=== PATIENT | female | born 1960 | race Caucasian/White ===

== ENCOUNTER 2017-04-04 18:04 | Emergency (ER) | payer OTHER ==
[2017-04-04 18:29] VITALS: BP 116/73; PULSE 59; TEMP 98.3; BMI 29.3
--- NOTE | 2017-04-04 19:22 | PDOC ---
History of Present Illness - General History Source: Patient Exam Limitations: No Limitations - History of Present Illness Initial Comments: 04/04/17 19:54 56 y/o F with a PMHx of a total hysterectomy, migraines, HLD presents to the ED with lower pelvic pressure for 4 days and vaginal discharge for 3 days. Patient reports associated vaginal itchiness and dysuria. She also reports a headache and breast tenderness. She reports the discharge is white in color without an odor. Patient had a pap smear last week and was given premarin cream that she only used once. She reports the headache is similar to her migraines in the past , but states this headache has lasted longer than usual. Her last sexual intercourse was 2 weeks ago. Patient reports chronic urinary urgency and frequency, which she attributes to multiple surgeries in the past. She denies hematuria. She denies fever, chills, nausea, vomiting, diarrhea. Denies chest pain, SOB. <Barbie Dash - Last Filed: 04/04/17 19:54> <Susana Stafford - Last Filed: 04/05/17 04:04> - General Chief Complaint: Vaginal Sxs Stated Complaint: vaginal d/c Time Seen by Provider: 04/04/17 19:11 Past History <Barbie Dash - Last Filed: 04/04/17 19:54> - Past Medical History GI Disorders: Yes (GERD) Hypercholesterolemia: Yes Other medical history: migrains - Family Disease History Family Disease History: Diabetes: Grandparents, Father, Mother, Heart Disease: Father - Suicide/Smoking/Psychosocial Hx Smoking Status: Yes Smoking History: Never smoked Have you smoked in the past 12 months: Yes Number of Cigarettes Smoked Daily: 2 If you are a former smoker, when did you quit?: 5 years Information on smoking cessation initiated: No 'Breaking Loose' booklet given: 01/15/16 Hx Alcohol Use: No Drug/Substance Use Hx: No Substance Use Type: Alcohol <Susana Stafford - Last Filed: 04/05/17 04:04> - Past Medical History Allergies/Adverse Reactions: Allergies Allergy/AdvReac Type Severity Reaction Status Date / Time Sulfa (Sulfonamide Allergy Hives Verified 04/04/17 18:04 Antibiotics) [Sulfa(Sulfonamide Antibiotics)] Home Medications: Ambulatory Orders Icosapent Ethyl [Vascepa] 01/15/16 Fluconazole [Diflucan] 150 mg PO ONCE #2 tablet 04/04/17 Omeprazole 40 mg PO DAILY 04/04/17 Propranolol HCl [Inderal] 20 mg PO DAILY 04/04/17 Review of Systems - Review of Systems Able to Perform ROS?: Yes Comments:: 04/04/17 19:54 CONSTITUTIONAL: Absent: fever, chills, diaphoresis, generalized weakness, malaise, loss of appetite HEENT: Absent: rhinorrhea, nasal congestion, throat pain, throat swelling, difficulty swallowing, mouth swelling, ear pain, eye pain, visual changes CARDIOVASCULAR: Absent: chest pain, syncope, palpitations, irregular heart rate , lightheadedness, peripheral edema RESPIRATORY: Absent: cough, shortness of breath, dyspnea with exertion, orthopnea, wheezing, stridor, hemoptysis GASTROINTESTINAL: Absent: abdominal pain, abdominal distension, nausea, vomiting , diarrhea, constipation, melena, hematochezia GENITOURINARY: (+) vaginal discharge, pelvic pain, vaginal itchiness, dysuria. Absent: hesitancy, hematuria, flank pain MUSCULOSKELETAL: Absent: myalgia, arthralgia, joint swelling SKIN: Absent: rash, itching, pallor HEMATOLOGIC/IMMUNOLOGIC: Absent: easy bleeding, easy bruising, lymphadenopathy, frequent infections ENDOCRINE: Absent: unexplained weight gain, unexplained weight loss, heat intolerance, cold intolerance NEUROLOGIC: (+) headache. Absent: focal weakness or paresthesias, dizziness, unsteady gait, seizure, mental status changes, bladder or bowel incontinence PSYCHIATRIC: Absent: anxiety, depression, suicidal or homicidal ideation, hallucinations. <Barbie Dash - Last Filed: 04/04/17 19:54> *Physical Exam - Vital Signs Last Vital Signs Temp Pulse Resp BP Pulse Ox 98.3 F 59 L 17 116/73 97 04/04/17 18:04 04/04/17 18:04 04/04/17 18:04 04/04/17 18:04 04/04/17 18:04 - Physical Exam Comments: 04/04/17 19:54 GENERAL: The patient is awake, alert, and fully oriented, in no acute distress. HEAD: Normal with no signs of trauma. EYES: Pupils equal, round and reactive to light, extraocular movements intact, sclera anicteric, conjunctiva clear with no pallor. ENT: Ears normal, nares patent, oropharynx clear without exudates. Moist mucous membranes. NECK: Normal range of motion, supple without lymphadenopathy, JVD, or masses. LUNGS: Breath sounds equal, clear to auscultation bilaterally. No wheeze/ crackles. HEART: Regular rate and rhythm, normal S1 and S2 without murmur or rub. ABDOMEN: Multiple lower abdominal incision that are well healed. Mild tenderness of LLQ without masses or rebound or guarding. Soft/nondistended. BS wnl. EXTREMITIES: Normal range of motion, no edema. No clubbing or cyanosis. No cords, erythema, or tenderness. NEUROLOGICAL: Cranial nerves II through XII grossly intact. Normal speech, normal gait. PSYCH: Normal mood, normal affect. SKIN: Warm, Dry, normal turgor, no rashes or lesions noted. PELVIC: erythematous external genitalia with moderate white vaginal discharge, no CMT. <Barbie Dash - Last Filed: 04/04/17 19:54> - Vital Signs Last Vital Signs Temp Pulse Resp BP Pulse Ox 98.3 F 59 L 17 116/73 97 04/04/17 18:04 04/04/17 18:04 04/04/17 18:04 04/04/17 18:04 04/04/17 18:04 <Susana Stafford - Last Filed: 04/05/17 04:04> ED Treatment Course - ADDITIONAL ORDERS Additional order review: Laboratory Results 04/04/17 19:25 Urine Color Yellow Urine Appearance Clear Urine pH 6.0 Ur Specific Trade 1.015 Urine Protein Negative Urine Glucose (UA) Negative Urine Ketones Negative Urine Blood Trace-intact H Urine Nitrite Negative Urine Bilirubin Negative Urine Urobilinogen 0.2 Ur Leukocyte Esterase Trace H <Barbie Dash - Last Filed: 04/04/17 19:54> Progress Note - Progress Note Progress Note: Documentation has been prepared under my direction and personally reviewed by me in its entirety. I attest that this documented accurately reflects all work, treatment, procedures and medical decision making performed by me. <Susana Stafford - Last Filed: 04/05/17 04:04> Medical Decision Making - Medical Decision Making As noted above, this 56-year-old woman presents with a few day history of vulvar pruritus, whitish discharge and dysuria. She also has some mild pelvic discomfort. She has a history of hysterectomy and BSO for ovarian cysts at age 43. No history of malignancy noted. Exam unremarkable. Pelvic exam by medical student revealed erythematous external genitalia, whitish vaginal discharge and no CMT. Chlamydia/GC cervical swab sent although patient is at low risk for STD with last sexual intercourse with her (no other partners) approximately 2 weeks ago. Urinalysis shows some RBCs/WBCs and few bacteria. Urine sent for culture and sensitivity. This is patient does not have overwhelming symptoms consistent with UTI, treatment of possible UTI will be pending results of C&S. We will treat for presumed vaginal candidiasis. Patient asked for "pill" for yeast infection since she does not like cream/suppositories Prescription for Diflucan 150 mg (with additional dose if symptoms are recurrent ) sent to patient's pharmacy <Susana Stafford - Last Filed: 04/05/17 04:04> *DC/Admit/Observation/Transfer - Attestations Scribe Attestion: 04/04/17 19:57 Documentation prepared by Barbie Dash, acting as biomedical service engineer for Susana Stafford MD. <Barbie Dash - Last Filed: 04/04/17 19:54> <Susana Stafford - Last Filed: 04/05/17 04:04> Diagnosis at time of Disposition: Vaginal candidiasis - Discharge Dispostion Disposition: HOME Condition at time of disposition: Stable - Prescriptions Prescriptions: Fluconazole [Diflucan] 150 mg PO ONCE #2 tablet - Referrals Referrals: Hue Prado MD [Primary Care Provider] - Michele Duggan MD [Staff Physician] - 3 days - Patient Instructions Printed Discharge Instructions: DI for Vaginal Yeast Infection Additional Instructions: Diflucan 150 mg 1 tablet by mouth; can repeat dose in 48 hours if symptoms persist drink plenty of water Follow-up with within 3 days We will call you if result of urine culture requires treatment Return to ER if you have worsening symptoms or experience fever/vomiting
[2017-04-04 19:31] LABS: URINE APPEARANCE Clear; URINE BILIRUBIN Negative (NEGATIVE); URINE BLOOD Trace-intact (NEGATIVE); URINE COLOR YELLOW; URINE GLUCOSE (UA) Negative (NEGATIVE); URINE KETONE Negative (NEGATIVE); URINE LEUK ESTERASE TRACE (NEGATIVE); URINE NITRITE Negative (NEGATIVE); URINE PROTEIN Negative (NEGATIVE); URINE UROBILINOGEN 0.2 (0.2-1.0)
[2017-04-04 20:08] LABS: URINE BACTERIA FEW /hpf (NEGATIVE)
== END 2017-04-04 20:31 | disposition home or self-care (01) ==
LOC: FER 18:04
DX: B37.3 Candidiasis of vulva and vagina (principal); Z87.891 Personal history of nicotine dependence; K21.9 Gastro-esophageal reflux disease without esophagitis; E78.00 Pure hypercholesterolemia, unspecified
CPT/HCPCS: 36415; 81003; 81015; 87086; 87491; 87591; 99282-25

== ENCOUNTER 2017-05-08 14:09 | Emergency (ER) | payer OTHER ==
[2017-05-08 14:17] VITALS: BP 123/71; PULSE 65; TEMP 97.9; BMI 30.2
[2017-05-08] MEDS ORDERED: TETRACAINE 0.5% HCL 0.6ML DROPPER.BOTTLE OS ONE (16:46)
[2017-05-08] MEDS ORDERED: TETRACAINE 0.5% OPHTH SOLN 2 ML BOTTLE ONE (16:51)
[2017-05-08] MEDS ORDERED: ACETAMINOPHEN 500 MG TABLET (FP) PO ONE (17:01)
[2017-05-08] MEDS ORDERED: ACETAMINOPHEN 500 MG TABLET (FP) ONE (17:06)
--- NOTE | 2017-05-08 17:06 | PDOC ---
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 Patient reports that shortly after this resolved she had headache (pressure like sensation) occipital area. He denies that this is anything like her normal migraines. Patient has never had any visual changes when getting a migraine in the past. Meds: No anticoagulants, OCPs. Allergies: SULFA REVIEW OF SYSTEMS GENERAL/CONSTITUTIONAL: No fever or chills. No weakness. No weight change. HEAD, EYES, EARS, NOSE AND THROAT: Decreased vision left eye by shadow then white light that lasted 30-45 minutes with no photophobia, phonophobia. No ear pain or discharge. No sore throat. CARDIOVASCULAR: No chest pain or shortness of breath. RESPIRATORY: No cough, wheezing, or hemoptysis. GASTROINTESTINAL: No nausea, vomiting. No diarrhea or constipation. No rectal bleeding. GENITOURINARY: No dysuria, frequency, or change in urination. MUSCULOSKELETAL: No joint or muscle swelling or pain. No neck or back pain. NEUROLOGIC: occipital headache (pressure like sensation, liighhtheadedness, no vertigo, loss of consciousness, altered mental status, or loss of sensation. PHYSICAL EXAM General Appearance: Appropriately dressed. No apparent distress, no intoxication HEENT: EOMI, FELICITY. No nystagmus. Normal voice. TMs normal, pharynx normal. No pallor of conjunctivae, no scleral icterus, no gross abnormatliy noted with slit lamp, + red reflex Neck: Supple, trachea midline. No tenderness, rigidity, carotid bruit, stridor , lymphadenopathy, thyromegaly. Respiratory/Chest: Lungs CTAB. Breath sounds normal. No chest tenderness, despiratory ristress, accessory muscle Use, labored respiration, crackles, rales, rhonchi, stridor, wheezing, dullness Cardiovascular: Regular Rhythm, Regular Rate, S1, S2. No JVD, Murmur, Bradycardia, Tachycardia Lymphatic: negative: Adenopathy, Tenderness Extremity: FROM of all extremities, Normal Capillary Refill, Normal Inspection, Normal Range of Motion, Pelvis Stable. No tenderness, Pedal Edema, Swelling, Erythema or deformity Integumentary: Normal Color, Dry, Warm, . 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 No appreciable EOM Palsy, Facial Droop or Sensory Deficit Timing/Duration: resolved prior to arrival (left eye shadow, white light ) Severity: mild Associated Symptoms: reports: other (left eye shadow/white light decreased vision, resolved presently, PRESSURE OCCIPITAL AREA, LIGHTHEADEDC) Past History - Past Medical History Allergies/Adverse Reactions: Allergies Allergy/AdvReac Type Severity Reaction Status Date / Time Sulfa (Sulfonamide Allergy Hives Verified 05/08/17 14:12 Antibiotics) [Sulfa(Sulfonamide Antibiotics)] Home Medications: Ambulatory Orders Icosapent Ethyl [Vascepa] 01/15/16 Fluconazole [Diflucan] 150 mg PO ONCE #2 tablet 04/04/17 Omeprazole 40 mg PO DAILY 04/04/17 Propranolol HCl [Inderal] 20 mg PO DAILY 04/04/17 COPD: No GI Disorders: Yes (GERD) Hypercholesterolemia: Yes - Family Disease History Family Disease History: Diabetes: Grandparents, Father, Mother, Heart Disease: Father - Immunization History Immunization Up to Date: Yes - Suicide/Smoking/Psychosocial Hx Smoking Status: Yes Smoking History: Never smoked Have you smoked in the past 12 months: Yes Number of Cigarettes Smoked Daily: 2 If you are a former smoker, when did you quit?: 5 years Information on smoking cessation initiated: No 'Breaking Loose' booklet given: 01/15/16 Hx Alcohol Use: No Drug/Substance Use Hx: No Substance Use Type: Alcohol Review of Systems - Review of Systems Able to Perform ROS?: Yes Constitutional: No: Symptoms Reported HEENTM: Yes: Blurred Vision (left saw shadow/white light blocking vision easiler for 30 -45 minutes ), Recent change in vision (left ear saw shadow/ white light blocked vision partially ). No: Tearing, Double Vision Respiratory: No: Symptoms reported Cardiac (ROS): No: Symptoms Reported ABD/GI: No: Symptoms Reported : No: Symptoms Reported Musculoskeletal: No: Symptoms Reported Integumentary: No: Symptoms Reported Neurological: Yes: Headache (occipital ) *Physical Exam - Vital Signs Last Vital Signs Temp Pulse Resp BP Pulse Ox 97.9 F 65 16 123/71 97 05/08/17 14:13 05/08/17 14:13 05/08/17 14:13 05/08/17 14:13 05/08/17 14:13 - Physical Exam General Appearance: Yes: Appropriately Dressed HEENT: positive: EOMI, FELICITY. negative: Photophobia Neck: negative: Lymphadenopathy (R), Lymphadenopathy (L), Rigidity, Tender lateral, Tender midline Respiratory/Chest: positive: Lungs Clear, Normal Breath Sounds. 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 negative: Respond to painful stimul, Numbness, Sensory Deficit ED Treatment Course - Medications Given in the ED: ED Medications Discontinued Medications Generic Name Dose Route Start Last Admin Trade Name Vivi PRN Reason Stop Dose Admin Tetracaine HCl 1 drop 05/08/17 16:46 05/08/17 16:50 Tetravisc 0.5% Eye Drops - OS 05/08/17 16:47 1 drop ONCE ONE Administration Medical Decision Making - Medical Decision Making 05/08/17 17:37 Patient is a 56-year-old female with a history of GERD, migraines, hyperlipidemia, who wears glasses for close-up and distance employee of the [employer]' reports at approximately 1:30 seeing a shadow in the center of her left eye followed by a white light that lasted approximately 30-45 minutes blurring her vision. Patient reports that shortly after this resolved she had headache (pressure like sensation) occipital area. He denies that this is anything like her normal migraines. Patient has never had any visual changes when getting a migraine in the past. occipital headache visual change left eye earlier today,none now PLAN: tetracaine 0.5 % 1 drop left eye Acetaminophen 1000 mg by mouth now will see if pressure-like sensation to occipital head decreases after a while CT scan of head without contrast significant interval change. Mild volume loss without evidence of acute intracranial pathology per Dr. 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
== END 2017-05-08 18:30 | disposition home or self-care (01) ==
LOC: JERFT 14:09
DX: R51 Headache (principal); I10 Essential (primary) hypertension; K21.9 Gastro-esophageal reflux disease without esophagitis; Z86.69 Personal history of other diseases of the nervous system and sense organs; Z87.891 Personal history of nicotine dependence
CPT/HCPCS: 70450-TC; 99281-25

== ENCOUNTER → 2018-07-08 | Day surgery (SDC) | payer OTHER ==
--- NOTE | 2018-07-09 11:45 | OP ---
DATE OF OPERATION: 07/08/2018 PREOPERATIVE DIAGNOSIS: Right breast mass 10 o'clock, 8 cm from the nipple. POSTOPERATIVE DIAGNOSIS: Right breast mass 10 o'clock, 8 cm from the nipple. PROCEDURE: Right ultrasound guided core biopsy with clip placement. ANESTHESIA: Local. ATTENDING SURGEON: Nona Padilla MD ESTIMATED BLOOD LOSS: Minimal. COMPLICATIONS: None. DESCRIPTION OF PROCEDURE: Patient was made aware of the risks and benefits of the procedure and consented. She was placed in the supine position. Under sterile conditions with 1% Lidocaine for local anesthesia, a small jose was made in the skin. Using a 13-guage suction biopsy device via a lateral approach under ultrasound guidance, multiple cores were obtained and submitted to Pathology. Likewise, under ultrasound guidance, a U-shaped clip was placed into the biopsy region. Well tolerated by patient. Steri-Strip and a sterile bandage were applied. We will contact her with the results. NONA PADILLA M.D. [id number]
--- NOTE | 2018-07-09 16:30 | PATH ---
Surgical Pathology Report Patient Name: DELMAR THACKER [facility]. Rec. #: [id number] /Age/Gender: 1960 (Age: 57) / F Account: [id number] Location: [facility] Taken: 07/08/2018 Received: 07/08/2018 Reported: 07/09/2018 Physicians: Nona Padilla M.D. Specimen(s) Received RIGHT BREAST 10:00 8 CM FN CORE BIOPSY Clinical History Palpable mass. Ultrasound findings: Highly suspicious/malignant Final Diagnosis BREAST, RIGHT, 10:00, 8 CM FN, CORE BIOPSY: INVASIVE DUCTAL CARCINOMA, MODERATELY DIFFERENTIATED, AT LEAST 1.5 CM IN THIS MATERIAL. Comment: Immunohistochemical stain performed and interpreted at [facility] shows the tumor is positive for E-Cadherin, supportive of ductal phenotype. Results of Her2 (IHC) & Ki-67 studies pending and will be reported separately. Results of Estrogen Receptor (ER) and Progesterone Receptor (OH) studies performed on block "2" at [facility] are as follows: ER (clone [id number] mouse monoclonal antibody by [employer]): >99% nuclear staining with strong intensity (Positive). OH (clone16 mouse monoclonal antibody by [employer]): >99% nuclear staining with strong intensity (Positive). Positive and negative controls (internal if applicable) show appropriate results. Formalin fixation and cold ischemic times are within current ASCO/CAP recommendations for ER, OH and Her2 testing. Electronically Signed Tessa Adkins M.D. Addendum Reported: 07/10/2018 Addendum Diagnosis Results of Her2 (IHC) & Ki-67 studies performed at [place], [place] ([id number]) are as follows: Her2 IHC (EP3 from [employer], formerly known as [id number], using [employer] Polymer Refine detection kit): 2+ (Equivocal). Ki-67: ~10% (Low proliferative index). HER2 by FISH is pending and will be reported separately. Positive and negative controls (internal if applicable) show appropriate results. Tessa Adkins M.D. Gross Description Received in formalin, labeled "right breast 10:00 8 cm fn" are six cores of light reynolds and yellow-reynolds tissue, ranging from 0.5-1.5 cm in length with a diameter of up to 0.1 cm. Entirely submitted in two cassettes. Time to formalin fixation: < 1 minute Total formalin fixation time: Approximately 6 hours AE/07/08/2018 ebram/07/08/2018
== END | disposition home or self-care (01) ==
LOC: FRADUS-SUR 14:34
PROVIDERS: ATTEND Surgery Surgical Oncology
PROC: 0HBT3ZX Excision of Right Breast, Percutaneous Approach, Diagnostic (ICD-10-PCS; principal; 2018-07-08)
DX: C50.411 Malignant neoplasm of upper-outer quadrant of right female breast (principal); Z17.0 Estrogen receptor positive status [ER+]; N63.11 Unspecified lump in the right breast, upper outer quadrant
CPT/HCPCS: 19083; 87899; 88305-TC; 88342-TC; A4648

== ENCOUNTER → 2018-07-23 | Day surgery (SDC) | payer OTHER ==
--- NOTE | 2018-07-25 17:31 | PATH ---
Surgical Pathology Report Patient Name: DELMAR THACKER [facility]. Rec. #: [id number] /Age/Gender: 1960 (Age: 57) / F Account: [id number] Location: [facility] Taken: 07/23/2018 Received: 07/23/2018 Reported: 07/25/2018 Physicians: Tino Cummings M.D. Specimen(s) Received LEFT BREAST 4:00 Clinical History Newly diagnosed right breast cancer Suspicious linear enhancement left breast 4:00 Final Diagnosis BREAST, LEFT, 4:00, MR GUIDED VACUUM ASSISTED CORE BIOPSY: BENIGN FIBROADIPOSE TISSUE WITH FOCAL DENSE FIBROSIS. Electronically Signed Tessa Adkins M.D. Gross Description Received in formalin labeled "left breast," is a 2.3 x 2.2 x 0.3 cm aggregate of multiple reynolds-yellow, irregular to cylindrical portions of fibroadipose tissue. The formalin is filtered and the specimen is entirely submitted in one cassette. Time to formalin fixation: 2 minutes Total formalin fixation time: Approximately 6 hours. /07/23/2018 saudi07/23/2018
== END | disposition home or self-care (01) ==
LOC: FRADUS-SUR 12:59
PROVIDERS: ATTEND Surgery Surgical Oncology
PROC: 0HBU3ZX Excision of Left Breast, Percutaneous Approach, Diagnostic (ICD-10-PCS; principal; 2018-07-23)
DX: N60.22 Fibroadenosis of left breast (principal); N63.23 Unspecified lump in the left breast, lower outer quadrant
CPT/HCPCS: 19085; 77065-TC; 88305-TC; A4648; C1887

== ENCOUNTER 2018-09-03 07:11 | Day surgery (SDC) | payer OTHER ==
--- NOTE | 2018-08-26 09:40 | HP ---
Admitting History and Physical - Primary Care Physician PCP: Nona Padilla - Admission Chief Complaint: right breast cancer History of Present Illness: 57 year old postmenapausal female with family H/O breast cancer with mammogram and US showng irregular mass at 10:00 8 to 10 cm FN. 05/2018. Us core biopsy right breast 06/2018 showed invasive ductal carcinoma ER/[place] + Her2 -. Breast MRI showed right breast cancer and no ther abnormalities. genetic testing showed POLD1 and GALNT12 vus. 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 - Smoking History Smoking history: Never smoked Have you smoked in the past 12 months: Yes Aproximately how many cigarettes per day: 2 If you are a former smoker, when did you quit?: 5 years - Alcohol/Substance Use Hx Alcohol Use: No Home Medications - Allergies Allergies/Adverse Reactions: Allergies Allergy/AdvReac Type Severity Reaction Status Date / Time Sulfa (Sulfonamide Allergy Hives Verified 05/08/17 14:12 Antibiotics) [Sulfa(Sulfonamide Antibiotics)] - Home Medications Home Medications: Ambulatory Orders Icosapent Ethyl [Vascepa] 01/15/16 Fluconazole [Diflucan] 150 mg PO ONCE #2 tablet 04/04/17 Omeprazole 40 mg PO DAILY 04/04/17 propRANOLol HCL [Inderal] 20 mg PO DAILY 04/04/17 Family Disease History - Family Disease History Family Disease History: CA: Father (father liver ca +ETOH), Mother (breast ca 76 currently 80 ), Brother (testicular ca 20's /liver ca ) Physical Examination Constitutional: Yes: Well Nourished Breast(s): Yes: Other (Right upperouter thickening without discrete mass/post biopsy changes. no adenopathy bilaterally or masses in left breast) Problem List - Problems (1) Breast cancer, right breast Code(s): C50.911 - MALIGNANT NEOPLASM OF UNSP SITE OF RIGHT FEMALE BREAST Qualifiers: Breast location: upper outer quadrant of breast Estrogen receptor status: positive Patient sex: female Qualified Code(s): C50.411 - Malignant neoplasm of upper-outer quadrant of right female breast; Z17.0 - Estrogen receptor positive status [ER+] Assessment/Plan Right breast wide excision mammogram needle localization,lymphoscintogram, senetenl node biopsy ,possible axillary node dissection, possible intraop radiation
[2018-08-26 13:31] VITALS: BMI 29.9
[2018-09-03] MEDS ORDERED: ISOSULFAN BLUE 10 MG/ML VIAL SQ ONE (11:31)
[2018-09-03] MEDS ORDERED: BUPIVACAINE HCL/PF 2.5 MG/ML - 30 ML VIAL IJ ONE (11:31)
[2018-09-03] MEDS ORDERED: fentaNYL CITRATE 250 MCG/5 ML VIAL ONE (11:38)
[2018-09-03] MEDS ORDERED: SUCCINYLCHOLINE CHLORIDE 200 MG/10 ML VIAL ONE (11:38)
[2018-09-03] MEDS ORDERED: MIDAZOLAM HCL 2 MG/2 ML SINGLE DOSE VIAL ONE (11:39)
[2018-09-03] MEDS ORDERED: PROPOFOL 20 ML ONE (11:39)
[2018-09-03] MEDS ORDERED: ROCURONIUM BROMIDE 50 MG/5 ML VIAL ONE ×2 (11:39)
[2018-09-03] MEDS ORDERED: GUM MASTIC/STORAX/MSAL/ALCOHOL 1 DRP DROPSBTL MC ONE (12:02)
[2018-09-03] MEDS ORDERED: KETOROLAC TROMETHAMINE 30 MG/1 ML VIAL IVPUSH PRN (12:24)
[2018-09-03] MEDS ORDERED: ONDANSETRON 4 MG/2 ML VIAL IVPUSH PRN ×2 (12:24→14:45)
[2018-09-03] MEDS ORDERED: DEXTROSE 5%-0.45% SALINE 1,000 ML IV SCH (12:30)
[2018-09-03] MEDS ORDERED: ePHEDrine SULFATE 50 MG/1 ML AMPULE ONE ×2 (12:37→13:27)
[2018-09-03] MEDS ORDERED: LACTATED RINGERS SOLUTION 1,000 ML IV SCH (14:45)
[2018-09-03] MEDS ORDERED: oxyCODONE HCL 5 MG TABLET PO PRN (14:45)
[2018-09-03] MEDS ORDERED: KETOROLAC TROMETHAMINE 30 MG/1 ML VIAL ONE (14:59)
[2018-09-03] MEDS ORDERED: KETOROLAC TROMETHAMINE 30 MG/1 ML VIAL IVPUSH ONE (15:00)
[2018-09-03] MEDS ORDERED: FAMOTIDINE 20 MG/50 ML IVPB 20 MG/50 ML MG IVPB ONE ×2 (15:46→17:00)
[2018-09-03] MEDS ORDERED: FAMOTIDINE 20 MG PREMIXED IVPB IVPB ONE (15:50)
[2018-09-03 16:05] VITALS: TEMP 98.7
[2018-09-03 17:49] VITALS: BP 126/66; PULSE 71
--- NOTE | 2018-09-03 19:17 | OP ---
DATE OF OPERATION: 09/03/2018 PREOPERATIVE DIAGNOSIS: Right breast cancer. POSTOPERATIVE DIAGNOSIS: Right breast cancer. PROCEDURE: Right mammographically localized partial mastectomy with sentinel node biopsy and intraoperative radiation. ANESTHESIA: General intubated. ATTENDING SURGEON: Nona Padilla MD DISPENSING AUDIOLOGIST: MARKY Yoon ESTIMATED BLOOD LOSS: Minimal. COMPLICATIONS: None. PROCEDURE: The patient was made aware of the risks and benefits of the procedure and consented. Preoperatively the patient went to radiology where a needle was placed in the index lesion. She then went to nuclear medicine where radioactive tracer was injected into the peritumor tissues. She was then placed in the supine position on the operating room table. After general anesthesia was induced, the patient was intubated. Then the operative site was prepped and draped in the usual sterile fashion. Then 2.5 mL of 1% isosulfan blue were locally infiltrated into the peritumor tissues. After waiting for approximately 10 minutes with general manual compression a curvilinear incision was made in the right axilla. Using blunt and sharp dissection tissues were dissected down where 2 blue hot lymph nodes were identified and excised. Interrogation of the axilla revealed no further hot spots and palpation revealed no suspicious nodules. The wound was copiously irrigated with normal saline, hemostasis maintained by electrocautery. The wound was then closed with deep 3-0 Vicryl followed by a running subcuticular 4-0 Monocryl. The breast was then approached. A radial and lateral incision was then made using electrocautery. Thick skin flaps were made. The needle was withdrawn to the puncture site to the wire. The blunt tissues surrounding the wire were then sharply excised and submitted with a short suture superior, long suture lateral. Specimen radiograph confirmed the presence of the index lesion and clip. Additional segments were taken deep anterior, medial lateral, superior and inferior with clips at the new margin. The wound was copiously irrigated with normal saline. Hemostasis maintained with electrocautery. A number 4.5-cm probe was then placed into the cavity and the tissue was exposed to it using a No. 1 Vicryl. Intraoperative ultrasound revealed all the distances from the skin to the probe were greater than 1.5 cm. A sterile gauze was placed in the wound to protect the skin and radiopaque material was placed over the chest wall. The patient underwent approximately 34 minutes of intraoperative radiation, after which the probe and gauze with suture were then removed. The wound was then closed with [id number] sutures of deep 2-0 Vicryl followed by interrupted 3-0 Vicryl followed by a running subcuticular 4-0 Monocryl. Steri-Strips, sterile dressing and compression bra were then applied and the patient, having tolerated the procedure well, was transferred to the recovery room in excellent condition. Tino [id number]
--- NOTE | 2018-09-03 20:40 | OP ---
DATE OF OPERATION: 09/03/2018 PREOPERATIVE DIAGNOSIS: Right breast cancer. POSTOPERATIVE DIAGNOSIS: Right breast cancer. PROCEDURE: Post lumpectomy intraoperative radiation therapy for right breast cancer. ATTENDING PHYSICIAN: Nona Padilla MD OLEO HASHER AND RENDERER/RADIATION ONCOLOGIST: Joce Lockwood MD ANESTHESIA: General. COMPLICATIONS: None. INDICATIONS: The patient is an 57-year-old woman with a clinical stage 1 invasive ductal carcinoma of the right breast who has elected breast conservation therapy with intraoperative radiation therapy on the [facility] registry. DESCRIPTION OF PROCEDURE: Dr. Padilla performed right lumpectomy and sentinel lymph node biopsy, which he has dictated. After excision of additional margins, the lumpectomy cavity was prepared and sized with a 4.5-cm diameter spherical applicator, which was placed into the operative cavity at the 9 o'clock to 10 o'clock aspect of the right breast. The surrounding breast tissues were cinched around the applicator with a Vicryl pursestring suture. I performed a clinical simulation and ultrasound measurements to ensure the applicator was located within the operative bed with close apposition of the surrounding breast tissue to the surface of the applicator with a minimal [id number] separation of 1.9 cm at the 12 o' clock aspect of the applicator. I also ensured that there was an adequate distance between the applicator and the chest wall. Saline-soaked gauze was placed between the skin and breast tissue to optimize the separation. Shielding material was placed over the breast to reduce scatter radiation. The patient received a total dose of 20 Gy prescribed to 0 mm from the applicator surface using 50 kV x-rays with the Intrabeam system. Prior to treatment, the system was double checked with appropriate physics senior quality assurance specialist measures. The total time required for the treatment was 34 minutes 14 seconds at a dose rate of 0.577 Gy per minute. When the treatment was completed, a survey of the patient and room confirmed that the Intrabeam source was off. There were no complications or unexpected interruptions. Dr. Padilla's team removed the radiation applicator from the patient and completed the surgery. The patient will be discharged to the recovery room following the surgery. JOCE LOCKWOOD M.D. HERNANDEZ/[id number] MTDD
--- NOTE | 2018-09-06 17:10 | PATH ---
Surgical Pathology Report Patient Name: DELMAR THACKER [facility]. Rec. #: [id number] /Age/Gender: 1960 (Age: 57) / F Account: [id number] Location: [facility] Taken: 09/03/2018 Received: 09/03/2018 Reported: 09/06/2018 Physicians: Nona Padilla M.D. Specimen(s) Received A: RIGHT AXILLARY SENTINEL NODES B: RIGHT BREAST WIDE EXCISION C: ANTERIOR MARGIN RIGHT BREAST D: POSTERIOR MARGIN RIGHT BREAST E: MEDIAL MARGIN RIGHT BREAST F: LATERAL MARGIN RIGHT BREAST G: INFERIOR MARGIN RIGHT BREAST H: SUPERIOR MARGIN RIGHT BREAST Clinical History Invasive Final Diagnosis A. AXILLARY SENTINEL LYMPH NODES, RIGHT, EXCISION: TWO LYMPH NODES, NEGATIVE FOR CARCINOMA (0/2). B. BREAST, RIGHT, WIDE EXCISION: INVASIVE DUCTAL CARCINOMA, MODERATELY DIFFERENTIATED (TUBULE SCORE: 3/3, NUCLEAR GRADE: 2/3, MITOTIC SCORE: 1/3; TOTAL DAYA SCORE: 6/9), WITH FOCAL MICROPAPILLARY FEATURES. INVASIVE CARCINOMA MEASURES 2.1 CM IN GREATEST MICROSCOPIC DIMENSION. FOCAL DUCTAL CARCINOMA IN SITU (DCIS), MICROPAPILLARY TYPE, INTERMEDIATE NUCLEAR GRADE. LYMPHOVASCULAR INVASION IDENTIFIED. MEDIAL AND LATERAL SURGICAL MARGINS ARE INVOLVED BY INVASIVE CARCINOMA. DCIS IS 2.5 MM FROM CLOSEST MEDIAL MARGIN. SEE SPECIMEN C-H FOR FINAL MARGINS. PRIOR BIOPSY SITE CHANGES ARE PRESENT. SURROUNDING BREAST PARENCHYMA SHOW SMALL INTRADUCTAL PAPILLOMA AND SCLEROSING ADENOSIS WITH ASSOCIATED MICROCALCIFICATIONS. PATHOLOGIC STAGE (pTNM): pT2 pN0 (sn). SEE INVASIVE CARCINOMA CASE SUMMARY BELOW. C. BREAST, RIGHT, ANTERIOR MARGIN, EXCISION: MINUTE FOCI OF INVASIVE DUCTAL CARCINOMA, <1 MM IN GREATEST MICROSCOPIC DIMENSION. INVASIVE CARCINOMA IS 4 MM FROM NEW ANTERIOR MARGIN. SEE COMMENT. D. BREAST, RIGHT, POSTERIOR MARGIN, EXCISION: BENIGN BREAST PARENCHYMA. E. BREAST, RIGHT, MEDIAL MARGIN, EXCISION: BREAST PARENCHYMA WITH INTRADUCTAL PAPILLOMA. F. BREAST, RIGHT, LATERAL MARGIN, EXCISION: BENIGN BREAST PARENCHYMA G. BREAST, RIGHT, INFERIOR MARGIN, EXCISION: INVASIVE DUCTAL CARCINOMA. CARCINOMA MEASURES 4MM IN GREATEST MICROSCOPIC DIMENSION. CARCINOMA IS <1 MM FROM NEW INFERIOR MARGIN. H. BREAST, RIGHT, SUPERIOR MARGIN, EXCISION: BENIGN BREAST PARENCHYMA. Comment: B, Immunohistochemical stain performed and interpreted at [facility] show the tumor is positive for E-cadherin, supportive of ductal phenotype. Part C, the small focus of invasive carcinoma is positive for E-cadherin while negative for myoepithelial markers (p63 and SMM-HC). Comments Breast Invasive Carcinoma: Surgical Pathology Case Summary (Based on AJCC TNM 8 th edition) Procedure _X_ Excision (less than total mastectomy) Specimen Laterality _X_ Right Tumor Size _X_ Greatest dimension of largest invasive focus >1 mm (millimeters): _21__ mm Histologic Type _X__ Invasive carcinoma with focal micropapillary features Histologic Grade ([place] Histologic Score) Glandular (Acinar)/Tubular Differentiation _X__ Score 3 (<10% of tumor area forming glandular/tubular structures) Nuclear Pleomorphism _X__ Score 2 Mitotic Rate _X__ Score 1 Overall Grade _X__ Grade 2 (scores of 6) Tumor Focality _X__ Single focus of invasive carcinoma Ductal Carcinoma In Situ (DCIS) _X__ DCIS is present in specimen _X__ Negative for extensive intraductal component (EIC) Margins Invasive Carcinoma Margins _X__ Uninvolved by invasive carcinoma Distance from closest margin (millimeters): Invasive carcinoma <1 mm from final inferior margin (G) and 4 mm from new anterior margin (C). Medial and lateral margins involved in wide excision (B); negative in final medial and lateral margins (E & F) Specify closest margin(s): Inferior DCIS Margins _X__ Uninvolved by DCIS Distance from closest margin (millimeters): 2.5 mm Closest margin: medial Regional Lymph Nodes _X__ Uninvolved by tumor cells Number of Lymph Nodes Examined: 2 Number of [place]chard Nodes Examined: 2 Treatment Effect _X__ No known presurgical therapy Lymphovascular Invasion _X__ Present Pathologic Stage Classification (pTNM, AJCC 8th Edition) Primary Tumor (Invasive Carcinoma) (pT) _X__ pT2: Tumor >20 mm but =50 mm in greatest dimension Category (pN) _X__ pN0: No regional lymph node metastasis identified or ITCs only Biomarker Studies Results of ER and CO studies performed on prior biopsy (D1964) at [facility] are as follows: ER (clone [id number] mouse monoclonal antibody by [employer]): >99 % nuclear staining with strong intensity (Positive). CO (clone16 mouse monoclonal antibody by [employer]): >99 % nuclear staining with strong intensity (Positive). Results of Her2 (IHC) & Ki-67 studies performed on prior biopsy (D19) at [place], [place] ([id number]) are as follows: Her2 IHC (EP3 from [employer], formerly known as [id number], using [employer] Polymer Refine detection kit): 2+ (Equivocal) Ki67: ~10% (Low proliferative index). HER 2 ANALYSIS BY FISH performed and interpreted at [place], [place] ([id number]) shows the following: INTERPRETATION: NEGATIVE Probe: HER2 2.2 Probe CEP17 2.0 Ratio 1.1 Electronically Signed Tessa Adkins M.D. Gross Description A. Received in formalin labeled "right axillary sentinel nodes," are 2 reynolds lymph nodes with attached fat measuring 1.5 x 1.0 x 0.6 cm and 2.3 x 1.7 x 0.8 cm. The specimen is entirely submitted in 4 cassettes as follows: 1-one bisected lymph node; 2-4-one trisected lymph node. B. Received in formalin, labeled "right breast wide excision," is a 4.0 x 3.7 x 2.7 cm. reynolds-yellow, irregular, portion of fibroadipose tissue with a needle localization wire present. There is a short suture marking the superior aspect and a long suture marking the lateral aspect, per the surgeon. There is no skin or nipple present. The specimen is inked as follows: Superior blue; inferior green; anterior and lateral red; medial yellow; deep black. The specimen is serially sectioned from anterior to deep. Sectioning reveals a 1.6 x 1.5 x 1.4 cm reynolds, indurated mass at 0.1 cm from the lateral margin, 0.1 cm from the medial margin, 0.2 cm from the superior margin and 0.7 cm from the anterior margin. Data Analytics Architect sections are submitted in 6 cassettes as follows: 1-full face section of mass with medial, lateral and superior margins; 2-additional full face section of mass with medial, lateral and superior margins; 3-additional mass with medial, lateral and superior margins; 4-inferior margin; 5-anterior margin; 6-deep margin. Time to formalin fixation: 23 minutes Total formalin fixation time: Approximately 29 hours. C. Received in formalin labeled "anterior margin right breast," is a 3.0 x 1.6 x 0.7 cm portion of fibroadipose tissue with a clip marking the new margin, per the surgeon. The new margin is inked blue and the specimen is serially sectioned. The specimen is entirely submitted in 3 cassettes. D. Received in formalin labeled "posterior margin right breast," is a 3.0 x 2.7 x 0.8 cm portion of fibroadipose tissue with a marking the new margin, per the surgeon. The new margin is inked blue and the specimen is serially sectioned. The specimen is entirely submitted in 3 cassettes. E. Received in formalin labeled "medial margin right breast," is a 2.8 x 1.8 x 0.4 cm portion of fibroadipose tissue with a clip marking the new margin, per the surgeon. The new margin is inked blue and the specimen is serially sectioned. The specimen is entirely submitted in 3 cassettes. F. Received in formalin labeled "lateral margin right breast," is a 2.0 x 1.6 x 0.5 cm portion of fibroadipose tissue with a clip marking the new margin, per the surgeon. The new margin is inked blue and the specimen is serially sectioned. The specimen is entirely submitted in 2 cassettes. G. Received in formalin labeled "inferior margin right breast," is a 2.3 x 1.4 x 0.4 cm portion of fibroadipose tissue with a clip marking the new margin, per the surgeon. The new margin is inked blue and the specimen is serially sectioned. The specimen is entirely submitted in 2 cassettes. H. Received in formalin labeled "superior margin right breast," is a 4.0 x 2.4 x 0.8 cm portion of fibroadipose tissue with a clip marking the new margin, per the surgeon. The new margin is inked blue and the specimen is serially sectioned. The specimen is entirely submitted in 4 cassettes. DL09/04/2018 saudi09/04/2018
== END 2018-09-03 17:45 | disposition home or self-care (01) ==
LOC: FASU 07:11
PROVIDERS: ATTEND Surgery Surgical Oncology
PROC: 0HBT0ZZ Excision of Right Breast, Open Approach (ICD-10-PCS; principal; 2018-09-03 12:49)
PROC: DMY17ZZ Contact Radiation of Right Breast (ICD-10-PCS; 2018-09-03 12:49)
DX: C50.411 Malignant neoplasm of upper-outer quadrant of right female breast (principal); Z17.0 Estrogen receptor positive status [ER+]; Z80.3 Family history of malignant neoplasm of breast; E78.5 Hyperlipidemia, unspecified; Z90.710 Acquired absence of both cervix and uterus
CPT/HCPCS: 19281; 76641-TC-50; 77290; 77300; 77316; 77332; 77370-TC; 77424; 78195-TC; 88307-TC; 88341-TC; 88342-TC; 94760; A9541; C9726

== ENCOUNTER 2020-05-27 05:08 | Day surgery (SDC) | payer BC ==
[2020-05-26 14:47] VITALS: BMI 30.9
[2020-05-27] MEDS ORDERED: SCOPOLAMINE HYDROBROMIDE 1 PATCH PATCH.TD72 ONE (11:09)
[2020-05-27] MEDS ORDERED: PROPOFOL 20 ML ONE (11:28)
[2020-05-27] MEDS ORDERED: DEXAMETHASONE SOD PHOSPHATE 4 MG/1 ML VIAL ONE (11:34)
[2020-05-27] MEDS ORDERED: MIDAZOLAM HCL 2 MG/2 ML SINGLE DOSE VIAL ONE (11:34)
[2020-05-27] MEDS ORDERED: ONDANSETRON 4 MG/2 ML VIAL ONE (11:34)
[2020-05-27] MEDS ORDERED: EPHEDRINE SULFATE/0.9% NACL/PF 50 MG/10 ML SYRINGE NR ONE (11:42)
[2020-05-27] MEDS ORDERED: ONDANSETRON 4 MG/2 ML VIAL IVPUSH PRN (12:06)
[2020-05-27] MEDS ORDERED: oxyCODONE HCL 5 MG TABLET PO PRN ×2 (12:06)
[2020-05-27] MEDS ORDERED: LACTATED RINGERS SOLUTION 1,000 ML IV SCH (12:15)
[2020-05-27] MEDS ORDERED: ACETAMINOPHEN 325 MG TABLET (FP) ONE (14:22)
[2020-05-27] MEDS ORDERED: ACETAMINOPHEN 325 MG TABLET (FP) PO ONE (14:25)
[2020-05-27 14:46] VITALS: TEMP 98
[2020-05-27 15:23] VITALS: BP 120/80; PULSE 74
== END 2020-05-27 16:00 | disposition home or self-care (01) ==
LOC: JASU-SURG 05:08
PROVIDERS: ATTEND Orthopaedic Surgery
PROC: 0LT60ZZ Resection of Left Lower Arm and Wrist Tendon, Open Approach (ICD-10-PCS; principal; 2020-05-27 12:00)
DX: M65.4 Radial styloid tenosynovitis [de Quervain] (principal)
CPT/HCPCS: 88304-TC; 94760

== ENCOUNTER 2021-06-10 10:08 | Day surgery (SDC) | payer BC ==
[2021-06-08 18:37] VITALS: BMI 29.9
[2021-06-10 12:04] VITALS: BP 121/79; PULSE 82; TEMP 97.8
== END 2021-06-10 12:43 | disposition home or self-care (01) ==
LOC: FASU-ENDO 10:08
PROVIDERS: ATTEND Internal Medicine Gastroenterology
PROC: 0DBN8ZX Excision of Sigmoid Colon, Via Natural or Artificial Opening Endoscopic, Diagnostic (ICD-10-PCS; principal; 2021-06-10)
DX: Z12.11 Encounter for screening for malignant neoplasm of colon (principal); D12.7 Benign neoplasm of rectosigmoid junction; K64.1 Second degree hemorrhoids; K92.1 Melena
CPT/HCPCS: 88305-TC

== ENCOUNTER 2021-11-06 12:10 | Emergency (ER) | payer BC ==
[2021-11-06 12:19] VITALS: BP 114/75; PULSE 62; TEMP 98.2; BMI 29.7
[2021-11-06] MEDS ORDERED: SODIUM CHLORIDE 0.9% 500 ML INFUS.BAG IV ONE (12:53)
[2021-11-06] MEDS ORDERED: KETOROLAC TROMETHAMINE 30 MG/1 ML VIAL IVPUSH ONE (12:53)
[2021-11-06] MEDS ORDERED: KETOROLAC TROMETHAMINE 30 MG/1 ML VIAL ONE (13:08)
[2021-11-06 14:04] LABS: PH,URINE 5.5 (5.0-8.0); URINE APPEARANCE CLEAR; URINE BILIRUBIN NEGATIVE (NEGATIVE); URINE COLOR YELLOW; URINE GLUCOSE (UA) NEGATIVE (NEGATIVE); URINE KETONE NEGATIVE (NEGATIVE); URINE LEUK ESTERASE NEGATIVE (NEGATIVE); URINE NITRITE NEGATIVE (NEGATIVE); URINE PROTEIN NEGATIVE (NEGATIVE); URINE UROBILINOGEN 0.2 mg/dL (0.2-1.0)
[2021-11-06 14:11] LABS: BASO % 0.8 % (0-2.0); EOS % 1.8 % (0-4.5); HEMATOCRIT 38.1 % (32.4-45.2); HEMOGLOBIN 13.2 GM/dL (10.7-15.3); LYMPH % 33.8 % (8-40); MCH 31.8 pg (25.7-33.7); MCHC 34.6 g/dl (32.0-36.0); MEAN PLT VOLUME 8.3 fl (7.5-11.1); MONO % 10.2 % (3.8-10.2); NEUT % 53.4 % (42.8-82.8); PLATELET COUNT 212 10^3/uL (134-434); RBC 4.14 M/mm3 (3.60-5.2); RDW 13.2 % (11.6-15.6); WHITE BLOOD COUNT 6.1 K/mm3 (4.0-10.0)
[2021-11-06 14:21] LABS: ALBUMIN 3.5 g/dl (3.4-5.0); BLOOD UREA NITROGEN 15.6 mg/dL (7-18); CALCIUM 9.6 mg/dL (8.5-10.1)
[2021-11-06 14:24] LABS: CREATININE 0.7 mg/dL (0.55-1.3)
[2021-11-06 14:26] LABS: TOT PROT 7.3 g/dl (6.4-8.2)
[2021-11-06 14:27] LABS: BILIRUBIN,TOTAL 0.3 mg/dL (0.2-1)
[2021-11-06] MEDS ORDERED: LIDOCAINE 5% TOPICAL PATCH TP ONE (16:23)
[2021-11-06] MEDS ORDERED: LIDOCAINE 5% TOPICAL PATCH ONE (16:30)
[2021-11-06] MEDS ORDERED: LIDOCAINE PATCH REMOVAL MC SCH (22:00)
== END 2021-11-06 17:16 | disposition home or self-care (01) ==
LOC: JER 12:10
DX: R10.9 Unspecified abdominal pain (principal)
CPT/HCPCS: 36415; 74177-TC; 80053; 81003; 85025; 87086; 99285-25; Q9967

== ENCOUNTER 2022-06-27 08:27 | Emergency (ER) | payer BC ==
[2022-06-27] MEDS ORDERED: ACETAMINOPHEN 500 MG TABLET (FP) PO ONE (08:44)
[2022-06-27 08:45] VITALS: BP 136/86; PULSE 86; RESP 18; TEMP 100; BMI 28.7
== END 2022-06-27 12:40 | disposition home or self-care (01) ==
LOC: JER 08:27
DX: U07.1 COVID-19 (principal)
CPT/HCPCS: 0241U-QW; 36415; 86308; 87651; 99283-25

== ENCOUNTER 2025-02-27 14:43 | Emergency (ER) | payer BC ==
[2025-02-27 14:57] VITALS: BP 122/83; PULSE 80; RESP 16; TEMP 98.5; BMI 30.7
[2025-02-27 15:29] LABS: EPITHELIAL CELLS 0-5 /hpf
== END 2025-02-27 16:00 | disposition home or self-care (01) ==
LOC: FER 14:43
DX: N39.0 Urinary tract infection, site not specified (principal); M54.50 Low back pain, unspecified; R30.0 Dysuria
CPT/HCPCS: 81003; 81015; 87086; 99283-25